=== PATIENT | male | born 2000 | race Two or more races ===

== ENCOUNTER → 2022-01-14 | Emergency (ER) | payer OTHER ==
[~2022-01-14] VITALS: Ht 172.7 cm; Wt 72.6 kg
[~2022-01-14] MED LIST: CLONAZEPAM0.5 MG PO; PNEU16DI2 IJ
== END | disposition designated cancer center or children's hospital (05) ==
LOC: ER 00:13
DX: S37.031A Laceration of right kidney, unspecified degree, initial encounter (principal); S81.811A Laceration without foreign body, right lower leg, initial encounter; S61.412A Laceration without foreign body of left hand, initial encounter; X99.9XXA Assault by unspecified sharp object, initial encounter; Y93.9 Activity, unspecified; Y92.89 Other specified places as the place of occurrence of the external cause; Y99.9 Unspecified external cause status

== ENCOUNTER 2022-02-22 09:03 | Emergency (ER) | payer OTHER ==
[~2022-02-22] VITALS: Ht 172.7 cm; Wt 63.5 kg
== END 2022-02-22 18:52 | disposition home or self-care (01) ==
LOC: ER 09:03
DX: K29.70 Gastritis, unspecified, without bleeding (principal); Z89.511 Acquired absence of right leg below knee; Z20.822 Contact with and (suspected) exposure to COVID-19